=== PATIENT | female | born 1965 | race Asian ===

== ENCOUNTER → 2023-08-13 | Outpatient (CLI) | payer OTHER ==
[2023-08-14 08:07] LABS: RUBELLA AB IGG-REFLAB 2.97 index (Immune >0.99)
[2023-08-14 09:07] LABS: MUMPS VIRUS IGG ANTIBODY >300.0 AU/mL (Immune >10.9); RUBEOLA (MEASLES) IGG >300.0 AU/mL (Immune >16.4); VARICELLA ZOSTER IGG AB TITER 639 index (Immune >165)
== END | disposition home or self-care (01) ==
LOC: MSR 11:39
PROVIDERS: ATTEND Internal Medicine
DX: Z02.1 Encounter for pre-employment examination (principal); R07.9 Chest pain, unspecified
CPT/HCPCS: 71045; 86706; 86735; 86762; 86765; 86787; 36415-L1; 36415-TC